=== PATIENT | female | born 1970 | race Caucasian/White ===

== ENCOUNTER 2020-01-26 15:18 | Outpatient (CLI) | payer MEDICARE, SELFPAY ==
--- NOTE | ~2020-01-26 | MM_ITS ---
EXAMINATION: MM screening [facility] BI w niraj HISTORY: Screening mammogram TECHNIQUE: Craniocaudal and mediolateral oblique 3-D tomosynthesis images were obtained and synthetic 2-D images were generated. CAD analysis was submitted and interpreted. COMPARISON: 08/06/2017 bilateral digital screening mammogram 03/03/2016 diagnostic left digital mammogram 02/18/2016, 10/11/2014 bilateral digital screening mammogram examinations BREAST PARENCHYMAL COMPOSITION: The breasts are heterogeneously dense, which may obscure small masses . FINDINGS: There is suggestion of mildly increased interval density in the posterior outer right breas t on CC projection. Diagnostic right mammogram is recommended, with ultrasound if required. Otherwise there is no evidence of suspicious mass, calcification, or architectural distortion to sugg est malignancy in either breast. There has been no suspicious interval change. IMPRESSION: 1. Interval increased density suggested in posterior outer right breast on cc view 2. Diagnostic right mammogram is recommended, with ultrasound if required. BI-RADS Category 0: Incomplete: Needs additional imaging evaluation. Reviewed, dictated and finalized at location A. IMPRESSION: 1. Interval increased density suggested in posterior outer right breast on cc v iew 2. Diagnostic right mammogram is recommended, with ultrasound if required. BI-RADS Category 0: Incomplete: Needs additional imaging evaluation.
== END 2020-01-26 15:19 | disposition home or self-care (01) ==
LOC: ANHIMG 15:21
PROVIDERS: PCP Nurse Practitioner Family; Visit Provider Nurse Practitioner Family
DX: Z12.31 Encounter for screening mammogram for malignant neoplasm of breast (principal); R92.8 Other abnormal and inconclusive findings on diagnostic imaging of breast
CPT/HCPCS: 77063; 77067

== ENCOUNTER 2020-02-17 11:34 | Outpatient (CLI) | payer MEDICARE, SELFPAY ==
--- NOTE | ~2020-02-17 | MMUS_ITS ---
EXAMINATION: MM diagnostic mammo unilat RT, US breast RT limited HISTORY: Follow-up right breast asymmetry TECHNIQUE: Additional 3-D tomosynthesis images of the right breast were performed and synthetic 2-D i mages were generated. CAD analysis was submitted and interpreted. High resolution Limited right breas t ultrasound was performed. COMPARISON: Comparison to multiple prior studies sequentially, with oldest reviewed study dated 10/11. BREAST PARENCHYMAL COMPOSITION: The breasts are heterogenously dense, which may obscure small masses. FINDINGS: MAMMOGRAPHIC FINDINGS: There are no suspicious masses, calcifications or architectural distortion in the right breast to sug gest malignancy. ULTRASOUND: Limited right breast ultrasound: Normal heterogeneous echotexture without focal solid or cystic mass. IMPRESSION: 1. No mammographic or sonographic evidence for malignancy in the right breast. 2. Routine yearly screening mammogram and regular clinical breast examination are recommended. BI-RADS Category 1: Negative Reviewed, dictated and finalized at location A. IMPRESSION: 1. No mammographic or sonographic evidence for malignancy in the right breast. 2. Routine yearly screening mammogram and regular clinical breast examination a re recommended. BI-RADS Category 1: Negative
== END 2020-02-17 11:35 | disposition home or self-care (01) ==
LOC: ANHIMG 11:40
PROVIDERS: PCP Nurse Practitioner Family; Visit Provider Nurse Practitioner Family
DX: R92.8 Other abnormal and inconclusive findings on diagnostic imaging of breast (principal)
CPT/HCPCS: 76642; 77065

== ENCOUNTER 2020-04-04 06:58 | Outpatient (NON) | payer MEDICARE, SELFPAY ==
[2020-04-04 18:22] LABS: SARS-CoV-2 RNA PCR Negative
== END 2020-04-04 06:59 ==
LOC: ANHCOVIDDT 07:17
PROVIDERS: Visit Provider Nurse Practitioner Family
DX: R43.0 Anosmia (principal); Z20.828 Contact with and (suspected) exposure to other viral communicable diseases
CPT/HCPCS: 87635; C9803; U0003

== ENCOUNTER 2020-05-08 09:42 | Emergency (ER) | payer MEDICARE, SELFPAY ==
--- NOTE | ~2020-05-08 | CT_ITS ---
EXAMINATION: CT abdomen pelvis w con DATE: 05/08/2020 10:44 INDICATION: Right-sided abdominal pain. Diarrhea. Nausea. TECHNIQUE: Computed tomography (CT) of the abdomen and pelvis was performed with 100 cc Omnipaque 350 intravenous contrast. Automated exposure control and iterative reconstruction technique were employe d. Exam dose: 229.48 mGy-cm total exam DLP. COMPARISON: 12/23/2018 CT abdomen pelvis FINDINGS: The lower lung zones are clear. Normal heart size. No pericardial or pleural effusion. The liver, gallbladder, bile ducts, pancreas, pancreatic duct, spleen, and adrenal glands and kidneys and urinary bladder are unremarkable. Status post hysterectomy. Normal caliber of the abdominal aorta. No intraperitoneal or retroperitoneal or pelvic mass lesion or adenopathy or ascites. No evidence of appendicitis. There are some fluid levels in the colon consistent with clinical histor y of diarrhea. No bowel obstruction, bowel wall thickening, pneumatosis or intraperitoneal free air i s detected. Small fat-containing umbilical hernia. Included skeletal structures are unremarkable. IMPRESSION: Fluid levels of the colon consistent with clinical presentation of diarrhea Status post hysterectomy Reviewed, dictated and finalized at [facility]. Reviewed, dictated and finalized at location B. Y BAR ATTENDANT
[2020-05-08 09:49] VITALS: BP 165/104; PULSE 79; RESP 18; TEMP 36.8; O2SAT 97
[2020-05-08 10:02] LABS: Basophils Percent Auto 0.3 % (0.2-1.2); Eosinophils Percent Auto 0.5 % (0-4.4); Hematocrit 43.9 % (37.0-47.0); Hemoglobin 14.8 g/dL (12.0-15.0); Immature Granulocyte Absolute 0.02 K/mm3 (0.00-0.031); Immature Granulocyte Percent A 0.3 % (0-0.5); Lymphocytes Absolute Auto 1.56 K/mm3 (0.9-3.2); Lymphocytes Percent Auto 24.8 % (18.3-44.2); Mean Corpuscular HGB Conc 33.7 g/dl (32-36); Mean Corpuscular Hemoglobin 31.2 pg (26-34); Mean Corpuscular Volume 92.6 fl (80-100); Monocytes Absolute Auto 0.3 K/mm3 (0.1-0.6); Monocytes Percent Auto 4.8 % (2.6-8.5); Neutrophils Absolute Auto 4.4 K/mm3 (1.3-6.7); Neutrophils Percent Auto 69.3 % (45.5-73.1); Platelet Count Result 231 k/mm3 (150-375); Red Blood Count 4.74 M/mm3 (4.2-5.4); Red Cell Distribution Width 12.7 % (11.5-14.5); White Blood Count 6.3 K/mm3 (4.5-10.0)
[2020-05-08 10:04] LABS: Add Urine Microscopic? NO; Appearance Urine Clear (Clear); Bilirubin Urine Negative (Negative); Blood Urine Negative (Negative); Color Urine Straw (Yellow); Glucose Urine UA Negative (Negative); Ketones Urine Negative (Negative); Leukocyte Esterase Ur Negative LEU/UL (Negative); Nitrate Urine Negative (Negative); Protein Urine Negative (Negative); Specific Grav Ur 1.009 (1.001-1.035); Urobilinogen Urine Negative mg/dL (<2.0)
[2020-05-08 10:14] LABS: Alanine Aminotransferase 59 U/L (4-35); Albumin Level 5.1 g/dL (3.5-5.1); Alkaline Phosphatase 82 U/L (38-126); Anion Gap 10 mmol/L (8-16); Aspartate Amino Transferase 71 U/L (14-36); Bilirubin,Total 0.7 mg/dL (0.2-1.3); Blood Urea Nitrogen 13 mg/dL (7-17); Calcium 9.9 mg/dL (8.4-10.2); Carbon Dioxide 28 mmol/L (22-30); Chloride 101 mmol/L (98-107); Estimated CRCL calculation 65 ml/min; Estimated Glomerular Filt Rate > 60; Glucose 117 mg/dL (65-105); Lipase 173 U/L (23-300); Potassium 3.6 mmol/L (3.4-5.0); Sodium 139 mmol/L (137-145)
--- NOTE | 2020-05-08 10:29 | ED.GENADULT ---
HPI - General Adult General Chief complaint: Abdominal Pain Stated complaint: abd pain Time Seen by Provider: 05/08/20 09:45 Source: patient History of Present Illness HPI narrative: Patient is a 50 y/o female complaining of right sided abdominal pain starting 2 weeks ago. She describes her pain as sharp and rates it as 5/10. Her pain is located in both right upper and lower abdomen. There is no pain radiation. There is no alleviating or exacerbating factor. She also has water diarrhea and she had more than 10 episodes of diarrhea during last 24 hours ago. She was taking Augmentin recently. Related Data Allergies Allergy/AdvReac Type Severity Reaction Status Date / Time meperidine Allergy Severe HIVES Verified 05/08/20 09:53 formaldehyde Allergy Intermediate HIVES Verified 05/08/20 09:53 Review of Systems Constitutional: Constitutional: Denies chills, Denies fever(s), Denies headache(s) and Denies weakness Eyes: Eyes: Denies blurry vision ENT: Denies headache(s) and Denies neck pain Cardiovascular: Cardiovascular: Denies chest pain and Denies dyspnea Respiratory: Respiratory: Denies cough and Denies dyspnea Gastrointestinal: Gastrointestinal: Reports abdominal pain, Reports diarrhea, Denies nausea and Denies vomiting Genitourinary: Genitourinary: Denies hematuria and Denies dysuria Musculoskeletal: Musculoskeletal: Denies back pain and Denies neck pain Neurologic: Denies headache(s) and Denies weakness Exam Const: General: no acute distress and well developed Orientation/consciousness: oriented to person, oriented to place, oriented to time and patient oriented x3 HENMT: Head: normocephalic Ears: external ears normal General nose exam: Normal external nose present Eyes: General: appearance normal, both eyes and all related structures Conjunctivae: conjunctivae normal Neck: Neck: normal visual inspection and full ROM Chest: Chest palpation & inspection: normal inspection of the chest and no tenderness Resp: Effort & Inspection: normal respiratory effort Auscultation: clear to auscultation bilaterally Cardio: Rate: regular rate Rhythm: regular rhythm GI: GI Palp: No abdominal tenderness and Yes Soft to palpation Skin: General skin exam: normal color and turgor normal Neuro: General: oriented to person, oriented to place, oriented to time and patient oriented x3 Cognition (Neuro): normal cognition Extrem: General: normal to inspection, full ROM and no pedal edema Psych: Appearance: grossly normal Mental Status: mental status grossly normal Affect: normal affect Course Vital Signs Vital signs: Vital Signs Temperature 36.8 C 05/08/20 09:49 Pulse Rate 79 05/08/20 09:49 Respiratory Rate 18 05/08/20 09:49 Blood Pressure 165/104 H 05/08/20 09:49 Pulse Oximetry 97 05/08/20 09:49 Temperature 36.8 C 05/08/20 09:49 Pulse Rate 72 05/08/20 12:22 Respiratory Rate 16 05/08/20 12:22 Blood Pressure 140/96 H 05/08/20 12:22 Pulse Oximetry 98 05/08/20 12:22 Medical Decision Making Vital Signs Vital Signs: Vital Signs Temperature 36.8 C 05/08/20 09:49 Pulse Rate 79 05/08/20 09:49 Respiratory Rate 18 05/08/20 09:49 Blood Pressure 165/104 H 05/08/20 09:49 Pulse Oximetry 97 05/08/20 09:49 Temperature 36.8 C 05/08/20 09:49 Pulse Rate 72 05/08/20 12:22 Respiratory Rate 16 05/08/20 12:22 Blood Pressure 140/96 H 05/08/20 12:22 Pulse Oximetry 98 05/08/20 12:22 Lab Data Result diagrams: 05/08/20 09:54 05/08/20 09:54 Labs: Lab Results 05/08/20 05/08/20 05/08/20 Range/Units 09:54 09:54 09:54 WBC 6.3 (4.5-10.0) K/mm3 RBC 4.74 (4.2-5.4) M/mm3 Hgb 14.8 (12.0-15.0) g/dL Hct 43.9 (37.0-47.0) % MCV 92.6 (80-100) fl MCH 31.2 (26-34) pg MCHC 33.7 (32-36) g/dl RDW 12.7 (11.5-14.5) % Plt Count 231 (150-375) k/mm3 MPV 10.0 (7.4-10.4) fl Immature Gran % (Auto) 0.
[2020-05-08 11:37] VITALS: BP 135/92; PULSE 68; RESP 18; O2SAT 99
[2020-05-08 12:22] VITALS: BP 140/96; PULSE 72; RESP 16; O2SAT 98
--- NOTE | 2020-05-08 22:18 | PC.NURSE ---
pt d/c before collected
== END 2020-05-08 12:23 | disposition home or self-care (01) ==
PROVIDERS: Emergency Provider Emergency Medicine; PCP Nurse Practitioner Family
DX: R19.7 Diarrhea, unspecified (principal); R10.31 Right lower quadrant pain; R10.11 Right upper quadrant pain
CPT/HCPCS: 36415; 74177; 80053; 81003; 81025; 83690; 85025; 99284; Q9967

== ENCOUNTER 2020-08-14 09:20 | Outpatient (CLI) | payer MEDICARE, SELFPAY ==
[2020-08-17 15:06] LABS: Fecal Fat, Ql Normal (Normal)
== END 2020-08-14 09:21 | disposition home or self-care (01) ==
PROVIDERS: PCP Nurse Practitioner Family; Visit Provider Internal Medicine Gastroenterology
DX: K90.9 Intestinal malabsorption, unspecified (principal); K52.9 Noninfective gastroenteritis and colitis, unspecified
CPT/HCPCS: 82705; 87045; 87046; 87427

== ENCOUNTER → 2020-08-25 06:53 | Outpatient (CLI) | payer MEDICARE, SELFPAY ==
[2020-08-25 20:53] LABS: SARS-CoV-2 RNA PCR Negative
== END ==
PROVIDERS: PCP Nurse Practitioner Family; Visit Provider Internal Medicine Gastroenterology
DX: Z01.812 Encounter for preprocedural laboratory examination (principal); Z20.822 Contact with and (suspected) exposure to COVID-19
CPT/HCPCS: C9803; U0003; U0005

== ENCOUNTER 2020-08-29 01:00 | Day surgery (SDC) | payer MEDICARE, SELFPAY ==
[2020-08-24 09:28] VITALS: BMI 23.4
[2020-08-29 09:53] VITALS: BP 132/94; PULSE 78; RESP 20; TEMP 36.6; O2SAT 97; BMI 24.3
--- NOTE | 2020-08-29 10:40 | WPDANESEPPF ---
Anes - Initial Pre Proc Eval Procedure: Operation Date: 08/29/20 11:00 Proposed Procedures p Colonoscopy - Shan Ma MD Date/Time: 08/29/20 10:40 Surgeon: Shan Ma MD Pre Op Diagnosis: diarrhea Patient Data Age: 50 Gender: F Height: 5 ft 2 in Weight: 60.4 kg Last Vital Signs Temp 97.8 F 08/29/20 09:53 Pulse 78 08/29/20 09:53 Resp 20 08/29/20 09:53 BP 132/94 H 08/29/20 09:53 Pulse Ox 97 08/29/20 09:53 Allergies Allergy/AdvReac Type Severity Reaction Status Date / Time meperidine Allergy Severe HIVES Verified 08/29/20 09:52 formaldehyde Allergy Intermediate HIVES Verified 08/29/20 09:52 Home Medications Medication Instructions Recorded Confirmed Type alprazolam 0.5 mg tablet 0.5 mg PO TID 08/13/20 08/24/20 History leflunomide 20 mg tablet 20 mg PO DAILY 08/13/20 08/24/20 History montelukast 10 mg tablet 10 mg PO DAILY 08/13/20 08/24/20 History pantoprazole 40 mg tablet,delayed 40 mg PO QAM 08/13/20 08/24/20 History release sertraline 100 mg tablet 100 mg PO DAILY 08/13/20 08/24/20 History sod picosulf 10 mg-magnes 3.5 160 ml PO BID #160 ml 08/24/20 08/24/20 Rx gram-citric 12 gram/160 mL oral solution Patient hx anesthesia problems: none Family hx anesthesia problems: none [facility] Past Medical History Medical History (Updated 08/29/20 @ 10:40 by Flakito Ramey MD) Anxiety Hypertension Social History Social History Smoking status: Current some day smoker Tobacco type: cigarettes Substance use type: does not use Living arrangements: with family Gender identity (if verbalized by the patient): Female Anes - Eval Final PreProcedure Day of Procedure 08/29/20 10:40 Patient weight: normal Heart: regular rate and rhythm Lungs: clear to auscultation Airway: Mallampati scale class II Neurological: alert and oriented Last oral intake: >/= 8 hours ASA classification: II Emergent: no Anesthetic plan: proceed Anesthesia type and monitoring: general GIVS and standard monitoring Informed Consent: The patient's anesthetic plan and its attendant risks and benefits were discussed with the patient/family/POA. Questions were solicited and answers provided to the satisfaction of the patient/family/POA.
--- NOTE | 2020-08-29 10:43 | PM.HPGS ---
History of Present Illness History of Present Illness Consent: Risks, benefits, and alternatives have been discussed and questions answered. Patient agrees to proceed with procedure. Chief complaint: diarrhea Narrative: Lamar York is a 50 year old female with severe chronic diarrhea. Stool studies have all been negative. She also has lost about 40 lb since her diarrhea began 4 months ago Review of Systems Review of Systems: All systems reviewed & are unremarkable except as noted in HPI and below PMFSH Past Medical History Medical History Anxiety Hypertension Social History Social History Smoking status: Current some day smoker Tobacco type: cigarettes Substance use type: does not use Living arrangements: with family Gender identity (if verbalized by the patient): Female Meds Home Medications and Allergies Home Medications Medication Instructions Recorded Confirmed Type alprazolam 0.5 mg tablet 0.5 mg PO TID 08/13/20 08/24/20 History leflunomide 20 mg tablet 20 mg PO DAILY 08/13/20 08/24/20 History montelukast 10 mg tablet 10 mg PO DAILY 08/13/20 08/24/20 History pantoprazole 40 mg tablet,delayed 40 mg PO QAM 08/13/20 08/24/20 History release sertraline 100 mg tablet 100 mg PO DAILY 08/13/20 08/24/20 History sod picosulf 10 mg-magnes 3.5 160 ml PO BID #160 ml 08/24/20 08/24/20 Rx gram-citric 12 gram/160 mL oral solution Allergies Allergy/AdvReac Type Severity Reaction Status Date / Time meperidine Allergy Severe HIVES Verified 08/29/20 09:52 formaldehyde Allergy Intermediate HIVES Verified 08/29/20 09:52 Vital Signs Vital Signs - 24 hr 08/29/20 09:53 Temperature 36.6 C Pulse Rate 78 Respiratory Rate 20 Blood Pressure 132/94 H Pulse Oximetry 97 Exam Resp: Auscultation: clear to auscultation bilaterally Cardio: Rate: regular rate Rhythm: regular rhythm GI: GI Palp: Yes Soft to palpation and No Tenderness to palpation present (GI)
[2020-08-29] MEDS: LACTATED RINGERS 1,000 ML 150 ML IV CONT (11:07)
[2020-08-29 11:09] VITALS: BP 112/71; PULSE 76; RESP 16; O2SAT 93
[2020-08-29 11:19] VITALS: BP 100/71; PULSE 76; RESP 20; O2SAT 94
[2020-08-29 11:29] VITALS: BP 99/65; PULSE 68; RESP 17; O2SAT 99
[2020-08-29 11:36] VITALS: BP 108/69; PULSE 62; RESP 21; O2SAT 100
== END 2020-08-29 11:58 | disposition home or self-care (01) ==
PROVIDERS: PCP Nurse Practitioner Family; Visit Provider Internal Medicine Gastroenterology
PROC: 0DJD8ZZ Inspection of Lower Intestinal Tract, Via Natural or Artificial Opening Endoscopic (ICD-10-PCS; CPT 45378; principal; 2020-08-29 11:00)
DX: Z12.11 Encounter for screening for malignant neoplasm of colon (principal); R19.7 Diarrhea, unspecified; F41.9 Anxiety disorder, unspecified; I10 Essential (primary) hypertension; F17.210 Nicotine dependence, cigarettes, uncomplicated; R63.4 Abnormal weight loss; Z20.822 Contact with and (suspected) exposure to COVID-19
CPT/HCPCS: 45380; 88305; C9803; J2704; J7120; U0003; U0005

== ENCOUNTER 2021-12-31 08:22 | Outpatient (CLI) | payer MEDICARE, SELFPAY ==
--- NOTE | ~2021-12-31 | MM_ITS ---
EXAMINATION: MM screening roland BI w niraj HISTORY: Screening mammogram, family history of breast cancer in her mother. TECHNIQUE: Craniocaudal and mediolateral oblique 3-D tomosynthesis images were obtained and synthetic 2-D images were generated. CAD analysis was submitted and interpreted. COMPARISON: 02/17/2020, 01/26/2020, 08/06/2017 BREAST PARENCHYMAL COMPOSITION: The breasts are heterogeneously dense, which may obscure small masses . FINDINGS: There is no suspicious mass, calcification, or architectural distortion to suggest malignan cy in either breast. There has been no suspicious interval change. IMPRESSION: 1. No mammographic evidence of malignancy. 2. Recommend routine screening mammography in one year. BI-RADS Category 1: Negative Reviewed, dictated and finalized at location A.
== END 2021-12-31 08:23 | disposition home or self-care (01) ==
PROVIDERS: PCP Nurse Practitioner Family; Visit Provider Nurse Practitioner Family
DX: Z12.31 Encounter for screening mammogram for malignant neoplasm of breast (principal)
CPT/HCPCS: 77063; 77067

== ENCOUNTER 2022-07-20 20:39 | Emergency (ER) | payer MEDICARE, SELFPAY ==
[2022-07-20] VITALS (21 sets, daily range): BP systolic 93–125; BP diastolic 63–84; PULSE 81–96; RESP 11–21; TEMP 36.8; O2SAT 96–100
--- NOTE | 2022-07-20 20:54 | ECG_ITS ---
Measurements Intervals [place] Rate: 91 P: 56 CA: 199 QRS: 24 QRSD: 111 T: 32 QT: 379 QTc: 469 Interpretive Statements SINUS RHYTHM INCOMPLETE RIGHT BUNDLE BRANCH BLOCK BORDERLINE ST-T WAVE ABNORMALITY- ANTERIOR LEADS BASELINE ARTIFACT- V5 BORDERLINE ECG NO PREVIOUS ECG AVAILABLE FOR COMPARISON Electronically Signed On 07-20-2022 21:35:17 CDT by Puneet Watts D.O.
--- NOTE | 2022-07-20 21:00 | PC.NURSE ---
Patient here via EMS after being found lying in bed with a bottle of Xanax by her. Patient denies suicidal ideations or attempts. Patient reports she was out to dinner tonight at [facility] drank two margaritas and three beers. Patient reports she takes Xanax as needed but was not trying to hurt herself. Patient is alert and orientated x4.
[2022-07-20 21:15] LABS: Basophils Percent Auto 0.2 % (0.2-1.2); Eosinophils Percent Auto 0.6 % (0-4.4); Hematocrit 37.1 % (37.0-47.0); Hemoglobin 12.4 g/dL (12.0-15.0); Immature Granulocyte Absolute 0.04 K/mm3 (0.00-0.031); Immature Granulocyte Percent A 0.6 % (0-0.5); Lymphocytes Absolute Auto 2.64 K/mm3 (0.9-3.2); Lymphocytes Percent Auto 41.1 % (18.3-44.2); Mean Corpuscular HGB Conc 33.4 g/dl (32-36); Mean Corpuscular Hemoglobin 31.5 pg (26-34); Mean Corpuscular Volume 94.2 fl (80-100); Mean Platelet Volume 9.7 fl (7.4-10.4); Monocytes Absolute Auto 0.3 K/mm3 (0.1-0.6); Neutrophils Absolute Auto 3.4 K/mm3 (1.3-6.7); Neutrophils Percent Auto 52.5 % (45.5-73.1); Platelet Count Result 237 k/mm3 (150-375); Red Blood Count 3.94 M/mm3 (4.2-5.4); Red Cell Distribution Width 12.9 % (11.5-14.5); White Blood Count 6.4 K/mm3 (4.5-10.0)
[2022-07-20 21:24] LABS: Alanine Aminotransferase 19 U/L (6-35); Albumin Level 4.3 g/dL (3.5-5.1); Alkaline Phosphatase 70 U/L (38-126); Anion Gap 8 mmol/L (8-16); Aspartate Amino Transferase 21 U/L (14-36); Bilirubin,Total 0.4 mg/dL (0.2-1.3); Blood Urea Nitrogen 8 mg/dL (7-17); Calcium 8.4 mg/dL (8.4-10.2); Carbon Dioxide 24 mmol/L (22-30); Chloride 112 mmol/L (98-107); Estimated CRCL calculation 71 ml/min; Estimated Glomerular Filt Rate > 60; Glucose 90 mg/dL (65-110); Potassium 3.5 mmol/L (3.4-5.0); Sodium 144 mmol/L (137-145)
[2022-07-20 21:25] LABS: Acetaminophen < 10 ug/mL (10-30); Ethanol 168 mg/dL (<10); Salicylate < 1.0 mg/dL (2-20)
[2022-07-20 21:31] LABS: Appearance Urine Clear (Clear); Bilirubin Urine Negative (Negative); Blood Urine Negative (Negative); Color Urine Yellow (Yellow); Glucose Urine UA Negative (Negative); Ketones Urine Negative (Negative); Leukocyte Esterase Ur Negative LEU/UL (Negative); Nitrate Urine Negative (Negative); Protein Urine Negative (Negative); Specific Grav Ur 1.004 (1.001-1.035); Urobilinogen Urine 0.2 mg/dL (<2.0)
[2022-07-20 21:47] LABS: Amphetamine Screen Urine Negative (Negative); Barbiturate Screen Urine Negative (Negative); Benzodiazepines Screen Urine Negative (Negative); Cannabinoid Screen Urine Negative (Negative); Cocaine Screen Urine Negative (Negative); Methadone Screen Urine Negative (Negative); Opiate Screen Urine Negative (Negative); Phencyclidine Screen Urine Negative (Negative)
[2022-07-20 21:53] LABS: Add Urine Microscopic? NO
[2022-07-20 22:11] LABS: SARS-CoV-2 RNA PCR Negative
[2022-07-21] VITALS (31 sets, daily range): BP systolic 94–114; BP diastolic 63–84; PULSE 70–97; RESP 11–18; O2SAT 95–100
--- NOTE | 2022-07-21 00:25 | ED.GENADULT ---
HPI - General Adult General Chief complaint: Overdose <Ivan Merida MD - Last Filed: 07/21/22 07:38> Stated complaint: OD <Ivan Merida MD - Last Filed: 07/21/22 07:38> Time Seen by Provider: 07/20/22 21:36 <Ivan Merida MD - Last Filed: 07/21/22 07:38> History of Present Illness HPI narrative: this is a 52-year-old female presenting ED with chief complaint of intentional overdose. Patient got intoxicated today drinking margaritas at [facility]. She then went home and took x8 0.5 mg Xanaxii. EMS was then called as the patient was lethargic. By time she arrived here she actually is arousable and can answer questions. She is saturating well on room air. Patient states that she took the pills because she is having a very stressful time with an adopted child with developmental delay who she is involved with State in court proceedings with. The patient currently is denying homicidal or suicidal ideation. she denies hallucinations. She admits alcohol use and Xanax use. She has no history of suicidal ideation. She does have depression. No physical complaints at this time. <Ivan Merida MD - Last Filed: 07/21/22 07:38> Related Data Home medications: Home Medications Medication Instructions Recorded Confirmed alprazolam 0.5 mg tablet (Xanax) 0.5 mg PO TID 08/13/20 08/24/20 leflunomide 20 mg tablet (Arava) 20 mg PO DAILY 08/13/20 08/24/20 montelukast 10 mg tablet 10 mg PO DAILY 08/13/20 08/24/20 pantoprazole 40 mg tablet,delayed 40 mg PO QAM 08/13/20 08/24/20 release sertraline 100 mg tablet (Zoloft) 100 mg PO DAILY 08/13/20 08/24/20 <Ivan Merida MD - Last Filed: 07/21/22 07:38> Allergies/adverse reactions: Allergies Allergy/AdvReac Type Severity Reaction Status Date / Time meperidine Allergy Severe HIVES Verified 08/29/20 09:52 formaldehyde Allergy Intermediate HIVES Verified 08/29/20 09:52 <Ivan Merida MD - Last Filed: 07/21/22 07:38> [facility] Past Medical History Medical History: Medical History Anxiety Hypertension <Ivan Merida MD - Last Filed: 07/21/22 07:38> Social History Social History: Social History Smoking status: Current some day smoker Tobacco type: cigarettes Substance use type: does not use Living arrangements: with family Gender identity (if verbalized by the patient): Female <Ivan Merida MD - Last Filed: 07/21/22 07:38> Exam Narrative: APPEARANCE: patient is tired but arousable Head: atraumatic. EYES: EOMI, 3 mm equal and reactive NOSE: Atraumatic NECK: Trachea midline RESPIRATORY: No increased rate of breathing , clear to auscultation CARDIOVASCULAR: RRR, no peripheral edema ABDOMINAL: Non-distended, soft, nontender no guarding rebound MUSCULOSKELETAl: No obvious deformities NEURO: Alert. Moving 4/4 extremities SKIN:: Warm, dry. Normal color PSYCHIATRIC: Normal affect <Ivan Merida MD - Last Filed: 07/21/22 07:38> Course Course Emergency Course: 07: Signed out to Dr. Garcia pending crisis. <Ivan Merida MD - Last Filed: 07/21/22 07:38> Reevaluation(s) Reevaluation #1: Patient evaluated by crisis team, they feel she is stable for discharge with safety plan. Patient well appearing here, resting comfortably in no distress; will give followup to [place] and can return for any further issues. <Vira Garcia MD - Last Filed: 07/21/22 08:42> Vital Signs Vital signs: Vital Signs Temperature 98.2 F 07/20/22 20:44 Pulse Rate 87 07/20/22 20:44 Respiratory Rate 14 07/20/22 20:44 Blood Pressure 125/84 07/20/22 20:44 Pulse Oximetry 100 07/20/22 20:44 Temperature 98.2 F 07/20/22 20:44 Pulse Rate 79 07/21/22 06:00 Respiratory Rate 16 07/21/22 01:45 Blood Pressure 103/71 07/21/22 01:01 Pulse Oximetry 99 07/21/22 06:00 <
[2022-07-21 04:07] LABS: Ethanol < 10 mg/dL (<10)
--- NOTE | 2022-07-21 06:36 | PC.NURSE ---
Patient's todd Cotton [phone].
--- NOTE | 2022-07-21 09:09 | PC.NURSE ---
today at 8:30am talked to Dago from poison control , updated on pt condition, VS and pt case # [id number] has been closed. Pt will be DC to home with safety plan.
== END 2022-07-21 09:13 | disposition home or self-care (01) ==
PROVIDERS: Emergency Medicine; Emergency Provider Emergency Medicine; PCP Nurse Practitioner Family
DX: F32.A Depression, unspecified (principal); Z20.822 Contact with and (suspected) exposure to COVID-19; I10 Essential (primary) hypertension; F17.210 Nicotine dependence, cigarettes, uncomplicated
CPT/HCPCS: 36415; 80053; 80307; 81003; 84443; 85025; 93005; 99282; U0003; U0005

== ENCOUNTER 2023-09-22 14:42 | Outpatient (CLI) | payer MEDICARE, SELFPAY ==
--- NOTE | ~2023-09-22 | MM_ITS ---
EXAMINATION: MM screening [place] BI w niraj HISTORY: Screening TECHNIQUE: Craniocaudal and mediolateral oblique 3-D tomosynthesis images were obtained and synthetic 2-D images were generated. CAD analysis was submitted and interpreted. COMPARISON: Comparison to multiple prior studies sequentially, with oldest reviewed study dated 02/01. BREAST PARENCHYMAL COMPOSITION: Not dense: There are scattered areas of fibroglandular density. FINDINGS: There is no evidence of suspicious mass, calcification, or architectural distortion to sugg est malignancy in either breast. There has been no suspicious interval change. IMPRESSION: 1. No mammographic evidence of malignancy. 2. Recommend routine screening mammography in one year. BI-RADS Category 1: Negative Reviewed, dictated and finalized at location A.
== END 2023-09-22 14:43 | disposition home or self-care (01) ==
PROVIDERS: PCP Nurse Practitioner; Visit Provider Nurse Practitioner
DX: Z12.31 Encounter for screening mammogram for malignant neoplasm of breast (principal)
CPT/HCPCS: 77063; 77067

== ENCOUNTER 2023-10-09 12:35 | Outpatient (CLI) | payer MEDICARE, SELFPAY ==
--- NOTE | ~2023-10-09 | MR_ITS ---
MRI of the cervical spine Clinical History: Acute on Technique: Axial T2-weighted and gradient images, and sagittal T1-weighted, T2-weighted, and STIR maurice ges were acquired. Findings: There is no fracture or subluxation of cervical spine. Vertebral bodies maintain normal hei ght and alignment. No suspicious bone marrow signal abnormality seen. At C2-C3, there is no disc bulge or herniation. No spinal canal stenosis, cord compression or neural foraminal narrowing, despite mild facet arthropathy. At C3-C4, there is no significant disc bulge or herniation. No spinal canal stenosis, cord compressio n or neural foraminal narrowing seen. At C4-C5, there is mild disc osteophyte complex. No anni canal stenosis or cord compression. Probabl e minimal bilateral neural foraminal narrowing. At C5-C6, there is mild disc osteophyte complex. No anni canal stenosis or cord compression. Possibl e minimal bilateral neural foraminal narrowing. At C6-C7, there is no disc bulge or herniation. No spinal canal stenosis, cord compression, or neural foraminal narrowing. No abnormal signal seen in the spinal cord. Paravertebral soft tissues are unremarkable. Impression: Mild degenerative spondylosis at C5-C6 and C4-C5, as above. Reviewed, dictated and finalized at [place] [facility]. Impression: Mild degenerative spondylosis at C5-C6 and C4-C5, as above.
--- NOTE | ~2023-10-09 | MR_ITS ---
MRI of the lumbar spine Clinical History: Back pain Technique: Axial T2-weighted images, and sagittal T1-weighted, T2-weighted, and T2 fat-sat images wer e acquired. Findings: There is no fracture or subluxation of the lumbar spine. Vertebral bodies maintain normal h eight. No bone marrow signal abnormality seen, aside from minimal Modic type I changes about the L1-L 2 disc space. At L1-L2, there is moderate degenerative disc narrowing. There is minimal disc bulge and mild to mode rate facet arthropathy. No central canal stenosis or neural foraminal narrowing. At L2-L3, L3-L4, L4-L5, there is no significant disc bulge or herniation. There are mild facet joint degenerative changes at these levels. No spinal canal stenosis or neural foraminal narrowing at these levels. At L5-S1, there is mild disc bulge and mild to moderate facet arthropathy. No central canal stenosis or neural foraminal narrowing. Paravertebral soft tissues are unremarkable. Impression: Minimal degenerative spondylosis, as above. Reviewed, dictated and finalized at location . Impression: Minimal degenerative spondylosis, as above.
== END 2023-10-09 12:36 ==
PROVIDERS: PCP Nurse Practitioner; Visit Provider Nurse Practitioner
DX: M47.22 Other spondylosis with radiculopathy, cervical region (principal); M47.26 Other spondylosis with radiculopathy, lumbar region
CPT/HCPCS: 72141; 72148

== ENCOUNTER 2023-10-31 21:57 | Emergency (ER) | payer MEDICARE, SELFPAY ==
--- NOTE | ~2023-10-31 | CT_ITS ---
EXAMINATION: CT cervical spine wo con DATE: 10/31/2023 22:48 INDICATION: Fall with head injury TECHNIQUE: Computed tomography (CT) of the cervical spine was performed without intravenous contrast. Automated exposure control and iterative reconstruction technique were employed. The dose-length pro duct was 251.42 mGy-cm. COMPARISON: None FINDINGS: Mild cervical kyphosis with no spondylolisthesis or facet subluxation. Vertebral body heights are nor mal. 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 Mild osteoarthritis at the atlantoaxial articulation. No fracture. Moderate disc height loss at C4-C5 and mild disc height loss at C2-C3 and, C3-C4, T2-T3 and T3-T4. Multilevel cervical uncovertebral osteoa rthritis, moderate bilaterally at C4-C5 on the right at C5-C6 and otherwise mild. There is multilevel mild to moderate cervical facet osteoarthritis. There is mild bilateral neural foraminal stenosis at C4-C5 and C5-C6. No significant central canal stenosis. Cervical soft tissues are unremarkable. Resp iratory motion and mild atelectasis in the visualized upper lungs. IMPRESSION: 1. Mild to moderate cervical spondylosis. No acute osseous abnormality. Reviewed, dictated and finalized at location A.
--- NOTE | ~2023-10-31 | CT_ITS ---
EXAMINATION: CT brain wo con DATE: 10/31/2023 22:48 INDICATION: Fall with head injury TECHNIQUE: Computed tomography (CT) of the head was performed without intravenous contrast. Sagittal and coronal reconstructions were performed. The mA was adjusted according to patient size. Iterative reconstruction technique was employed. The dose-length product was 605.33 mGy-cm. COMPARISON: Brain MR dated 03/21/2008 FINDINGS: No fracture. No acute intracranial hemorrhage, acute infarction or abnormal extra axial fluid collect ion. Ventricles are normal and symmetric. No mass/mass effect. 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 The orbits, paranasal sinuses and mastoid air cells are normal. IMPRESSION: 1. No fracture or acute intracranial process. Reviewed, dictated and finalized at location A.
[2023-10-31 22:05] VITALS: BP 120/86; PULSE 90; RESP 16; TEMP 36.7; O2SAT 95
--- NOTE | 2023-10-31 22:11 | ECG_ITS ---
Test Date: 2023-10-31 22:20:50 Measurements Intervals [place] Rate: 89 P: 66 GA: 180 QRS: 38 QRSD: 114 T: 58 QT: 370 QTc: 451 Interpretive Statements SINUS RHYTHM POSSIBLE RIGHT VENTRICULAR CONDUCTION DELAY [RSR (QR) IN V1/V2] ST DEVIATION AND MODERATE T-WAVE ABNORMALITY, CONSIDER ANTERIOR ISCHEMIA [-0.1+ mV T WAVE IN V3/V4] No previous ECG available for comparison Electronically Signed On 11-01-2023 16:13:48 CDT by Vitor Du M.D.
[2023-10-31] MEDS: TETANUS,DIPHTHERIA,AC PERTUSSIS ADULT (0.5 ML) BOOSTRIX IM (22:32)
[2023-10-31 22:33] LABS: Appearance Urine Clear (Clear); Bilirubin Urine Negative (Negative); Blood Urine Negative (Negative); Color Urine Yellow (Yellow); Glucose Urine UA Negative (Negative); Ketones Urine Negative (Negative); Leukocyte Esterase Ur Negative LEU/UL (Negative); Nitrate Urine Negative (Negative); Protein Urine Negative (Negative); Urobilinogen Urine 0.2 mg/dL (<2.0)
[2023-10-31 22:36] LABS: Add Urine Microscopic? YES; Specific Grav Ur 1.003 (1.001-1.035)
--- NOTE | 2023-10-31 22:40 | ED.HEATRA ---
HPI - Head Injury General Chief complaint: Head Injury Stated complaint: head injury, ETOH Time Seen by Provider: 10/31/23 22:12 Source: patient and family Mode of arrival: ambulatory Limitations: no limitations History of Present Illness HPI Narrative: Patient is a 53 y/o female who presents to the ED with c/o head injury. Patient reports she has been drinking alcohol today, at least 10 beers. She was found outside in her family member's driveway, having fallen. she sustained a head injury with a laceration to her right forehead. Patient is unsure how the fall occurred. Unsure if she lost consciousness or passed out. Denies any other areas of pain. Denies dizziness, neck/back pain, vision changes. Tetanus unknown. Patient is not on any blood thinners. Related Data Home Medications Medication Instructions Recorded Confirmed alprazolam 0.5 mg tablet (Xanax) 0.5 mg PO TID 08/13/20 08/24/20 leflunomide 20 mg tablet (Arava) 20 mg PO DAILY 08/13/20 08/24/20 montelukast 10 mg tablet 10 mg PO DAILY 08/13/20 08/24/20 pantoprazole 40 mg tablet,delayed 40 mg PO QAM 08/13/20 08/24/20 release sertraline 100 mg tablet (Zoloft) 100 mg PO DAILY 08/13/20 08/24/20 Allergies Allergy/AdvReac Type Severity Reaction Status Date / Time meperidine Allergy Severe HIVES Verified 08/29/20 09:52 formaldehyde Allergy Intermediate HIVES Verified 08/29/20 09:52 Review of Systems Review of Systems: CONSTITUTIONAL: Denies fever, chills, or sweats. ENT: Denies Vision changes. CARDIOVASCULAR: Denies chest pain. RESPIRATORY: Denies dyspnea. GASTROINTESTINAL: Denies abdominal pain, nausea, vomiting MUSCULOSKELETAL: Denies back pain, extremity pain, myalgia. NEUROLOGIC: see HPI. All systems reviewed & are unremarkable except as noted in HPI and below PMFSH Past Medical History Medical History Anxiety Hypertension Social History Social History Smoking status: Current some day smoker Tobacco type: cigarettes Substance use type: does not use Living arrangements: with family Gender identity (if verbalized by the patient): Female Exam Narrative: GENERAL: Appears intoxicated, well-nourished, non-toxic, in no acute distress. HEAD: Normocephalic. 2cm laceration to R forehead with surrounding contusion. No significant active bleeding. EYES: PERRL/EOMI, conjunctiva clear. NECK: No significant midline spinal tenderness. RESPIRATORY: Airway patent, respirations nonlabored. Clear to auscultation bilaterally, no rales, rhonchi, wheezing. CARDIOVASCULAR: Regular rate and rhythm without murmurs, rubs, or gallops. MUSCULOSKELETAL: Moves all extremities. No gross deformities. SKIN: Warm, dry, normal color. NEURO: A&O X3. Speech slow but clear. Cranial nerves II-XII grossly intact. Steady gait. No ataxic movements. PSYCHIATRIC: Appropriate mood and affect. Normal interaction. Course Vital Signs Vital signs: Vital Signs Temperature 98.1 F 10/31/23 22:05 Pulse Rate 90 10/31/23 22:05 Respiratory Rate 16 10/31/23 22:05 Blood Pressure 120/86 10/31/23 22:05 Pulse Oximetry 95 10/31/23 22:05 Oxygen Delivery Room Air 10/31/23 22:05 Temperature 98.1 F 10/31/23 22:05 Pulse Rate 67 11/01/23 00:19 Respiratory Rate 18 11/01/23 00:19 Blood Pressure 137/68 11/01/23 00:19 Pulse Oximetry 99 11/01/23 00:19 Oxygen Delivery Room Air 10/31/23 22:05 Procedures Laceration Laceration 1: Date: 11/01/23 Time: 00:00 Site: scalp Side (If applicable): right (forehead) Size (cm): 2 Description: linear Depth: simple, single layer Local Anesthetic: lidocaine 1% Amount of anesthesia used (mL): 5 Pre-repair: wound explored and irrigated ====== Skin Level ====== Skin layer closed with: nylon Size (cm):
[2023-10-31 22:48] LABS: Amphetamine Screen Urine Negative (Negative); Barbiturate Screen Urine Negative (Negative); Benzodiazepines Screen Urine Negative (Negative); Cannabinoid Screen Urine Negative (Negative); Cocaine Screen Urine Negative (Negative); Methadone Screen Urine Negative (Negative); Opiate Screen Urine Negative (Negative); Phencyclidine Screen Urine Negative (Negative)
[2023-10-31 22:52] LABS: Basophils Percent Auto 0.3 % (0.2-1.2); Eosinophils Absolute Auto 0.1 K/mm3 (0-0.3); Lymphocytes Absolute Auto 4.08 K/mm3 (0.9-3.2); Lymphocytes Percent Auto 41.3 % (18.3-44.2); Mean Corpuscular HGB Conc 34.1 g/dl (32-36); Mean Corpuscular Hemoglobin 31.9 pg (26-34); Mean Corpuscular Volume 93.4 fl (80-100); Mean Platelet Volume 9.4 fl (7.4-10.4); Monocytes Absolute Auto 0.4 K/mm3 (0.1-0.6); Monocytes Percent Auto 4.2 % (2.6-8.5); Neutrophils Absolute Auto 5.2 K/mm3 (1.3-6.7); Neutrophils Percent Auto 52.2 % (45.5-73.1); Platelet Count Result 289 k/mm3 (150-375); Red Blood Count 4.39 M/mm3 (4.2-5.4); Red Cell Distribution Width 13.1 % (11.5-14.5); White Blood Count 9.9 K/mm3 (4.5-10.0)
[2023-10-31 23:11] LABS: Ethanol 298 mg/dL (<10)
[2023-10-31 23:12] LABS: Alanine Aminotransferase 23 U/L (6-35); Albumin Level 4.9 g/dL (3.5-5.1); Alkaline Phosphatase 69 U/L (38-126); Anion Gap 11 mmol/L (4-12); Aspartate Amino Transferase 26 U/L (14-36); Bilirubin,Total 0.4 mg/dL (0.2-1.3); Blood Urea Nitrogen 6 mg/dL (7-17); Carbon Dioxide 26 mmol/L (22-30); Chloride 103 mmol/L (98-107); Estimated CRCL calculation 63 ml/min; Estimated Glomerular Filt Rate > 60; Glucose 117 mg/dL (65-110); Magnesium 2.1 mg/dL (1.6-2.3); Potassium 3.6 mmol/L (3.4-5.0); Sodium 140 mmol/L (137-145)
[2023-10-31 23:23] LABS: Troponin I < 0.012 ng/mL (0.000-0.034)
[2023-11-01 00:19] VITALS: BP 137/68; PULSE 67; RESP 18; O2SAT 99
== END 2023-11-01 00:20 | disposition home or self-care (01) ==
PROVIDERS: Emergency Provider Physician Assistant; PCP Nurse Practitioner
DX: S01.01XA Laceration without foreign body of scalp, initial encounter (principal); F10.920 Alcohol use, unspecified with intoxication, uncomplicated; Z23 Encounter for immunization; F17.210 Nicotine dependence, cigarettes, uncomplicated; F41.9 Anxiety disorder, unspecified; I10 Essential (primary) hypertension; W19.XXXA Unspecified fall, initial encounter; Z79.899 Other long term (current) drug therapy
CPT/HCPCS: 12001; 36415; 70450; 72125; 80053; 80307; 81001; 83735; 84484; 85025; 90471; 90715; 93005; 99284